=== PATIENT | male | born 1975 | race Caucasian/White ===

== ENCOUNTER 2024-06-08 13:09 | Emergency (ER) | payer OTHER, SELFPAY ==
[2024-06-08 13:18] VITALS: BP 120/70; PULSE 52; RESP 16; TEMP 36.6; O2SAT 99
[2024-06-08] MEDS: Diph,Pertuss(Acell),Tet Vac/Pf 0.5 ML SYR IM (13:37)
[2024-06-08] MEDS: Lidocaine 1% Pres-Free 5 ML VIAL (13:38)
--- NOTE | 2024-06-08 14:06 | ED.GENADUL_ITS ---
Discharge Plan Disposition Patient Disposition: Home Discharge Details Clinical Impression: Laceration of thumb Primary Care Provider: Kimberlee,Local ED Provider: Caitlyn James Home Meds and New Rx's Prescriptions: No Action No Known Home Meds Discharge Instructions Instructions: Laceration Repair With Stitches ED Additional Instructions: you have vertical mattress sutures #5 suture removal in 12-14 days after 48-72 hours, please allow to air dry at night may wear badage during day apply bacitracin and clean dressing after washing with soap and water daily return with spreading redness, fever, worsening pain HPI General Date/Time Provider Initiated Documentation: 06/08/24 13:14 . HPI Narrative: This 49-year-old male presents with report of laceration to left thumb. Patient was sharpening his son's skis when he accidentally slipped, cutting his thumb. States he needs a tetanus updated last was in 2009. He is otherwise reportedly healthy without history of coagulopathy. The event occurred just prior to arrival. Related Data Home Medications ?Medication ?Instructions ?Recorded ?Confirmed Unknown [No Known Home Meds] 06/08/24 06/08/24 Allergies Allergy/AdvReac Type Severity Reaction Status Date / Time Unable to Assess Allergy Unverified 06/08/24 13:15 General Stated Complaint: Laceration HEAVEN: 4 Exam Narrative Exam Narrative: Left thumb with a laceration noted along the radial aspect, into adipose tissue, range of motion intact, neurovascularly intact, no visualized foreign body flexion and extension completely intact on exam Course Vital Signs Vital signs: Vital Signs Temperature 36.6 C 06/08/24 13:18 Pulse 52 L 06/08/24 13:18 Respiratory Rate 16 06/08/24 13:18 Blood Pressure 120/70 06/08/24 13:18 Pulse Oximetry 99 06/08/24 13:18 Temperature 36.6 C 06/08/24 13:18 Temperature Source Oral 06/08/24 13:18 Pulse 52 L 06/08/24 13:18 Respiratory Rate 16 06/08/24 13:18 Respiratory Effort Normal, Non-Labored 06/08/24 13:17 Blood Pressure 120/70 06/08/24 13:18 Pulse Oximetry 99 06/08/24 13:18 Oxygen Delivery Method Room Air 06/08/24 13:18 Oxygen Flow Rate 0 06/08/24 13:18 Pain Level 6 06/08/24 13:18 Comment no meds 06/08/24 13:16 Procedures Laceration Laceration 1: Site: other (thumb ) Side (If applicable): left Size (cm): 2.5 Description: flap and irregular Amount of anesthesia used (mL): 4 Pre-repair: wound explored, irrigated extensively and wound margins revised Skin layer closed with: nylon Size (cm): 5-0 Number of sutures: 5 Technique: other (vertical mattress ) Medical Decision Making This 49-year-old male presents with laceration to left thumb just prior to arrival. Tetanus is updated, patient remains neurovascularly intact. I considered x-ray but I do not see obvious foreign body and laceration does not extend past the adipose tissue, full exam was able to be performed, flexion and extension are intact and I may see no evidence of tendon or ligamentous trauma. 5 vertical mattress sutures were placed patient tolerated without incident. He was placed in a dressing and encouraged to have them removed in 12 to 14 days. Motrin and Tylenol and refraining from submerging thumb in water was recommended. Return precautions reviewed and patient expressed understanding. Quality:SDOH Health Related Social Needs: No Data to Display PFSH All Active Problems (Updated 06/08/24 @ 14:09 by NOVA Ravi) Laceration of thumb (Acute) Social History Smoking/Tobacco Use Status: Never Smoking risk assessment performed?: Yes Alcohol Intake: current Alcohol Intake frequency: holidays/special occasions only Drug use: Never Substance use type: does not use Housing: house Do you feel safe at home: Yes Do you feel safe in your relationship?: Yes
== END 2024-06-08 14:29 | disposition home or self-care (01) ==
LOC: ER 14:42
PROVIDERS: Emergency Provider Physician Assistant
DX: S61.012A Laceration without foreign body of left thumb without damage to nail, initial encounter (principal); W26.0XXA Contact with knife, initial encounter; Z23 Encounter for immunization
CPT/HCPCS: 12001; 90715; 99284; 99283; J2003

== ENCOUNTER 2024-06-21 12:34 | Emergency (ER) | payer OTHER, SELFPAY ==
[2024-06-21 12:37] VITALS: BP 120/68; PULSE 72; RESP 18; TEMP 36.6; O2SAT 100
--- NOTE | 2024-06-21 12:57 | ED.GENADUL_ITS ---
Discharge Plan Disposition Patient Disposition: Home Condition: Stable Discharge Details Clinical Impression: Visit for suture removal Primary Care Provider: Kimberlee,Local ED Provider: Zechariah Nguyen Home Meds and New Rx's Prescriptions: No Action No Known Home Meds Discharge Instructions Additional Instructions: Keep wound protected to continue allow for healing. Return to the ER immediately for any worsening or new concerning symptoms. HPI General Mode of arrival: ambulatory . Date/Time Provider Initiated Documentation: 06/21/24 12:41 . Limitations to Documentation: no limitations . Information obtained by: patient . HPI Narrative: 49-year-old male here for suture removal from repaired wound right thumb. Sutures were placed on 06/08/2024. Wound has been healing well. He does have some discomfort when he impacts his thumb. No pain with movement. Related Data Home Medications ?Medication ?Instructions ?Recorded ?Confirmed Unknown [No Known Home Meds] 06/08/24 06/21/24 Allergies Allergy/AdvReac Type Severity Reaction Status Date / Time Unable to Assess Allergy Unverified 06/21/24 12:39 General Stated Complaint: SutureRem HEAVEN: 4 Review of Systems Integumentary/Breasts Skin/Breast: Reports as per HPI Exam Skin Other: Laceration right thumb healing well with #5 intact sutures Extrem Right upper extremity: hand Details: tendon exam normal Location: of the thumb, normal ROM of fingers (Thumb) and other (No bony tenderness) Course Vital Signs Vital signs: Vital Signs Temperature 36.6 C 06/21/24 12:37 Pulse 72 06/21/24 12:37 Respiratory Rate 18 06/21/24 12:37 Blood Pressure 120/68 06/21/24 12:37 Pulse Oximetry 100 06/21/24 12:37 Temperature 36.6 C 06/21/24 12:37 Pulse 72 06/21/24 12:37 Respiratory Rate 18 06/21/24 12:37 Blood Pressure 120/68 06/21/24 12:37 Pulse Oximetry 100 06/21/24 12:37 Pain Level 2 06/21/24 12:37 Medical Decision Making 49-year-old male here for suture removal. Sutures were placed 12 days ago right thumb. Wound healing well. 2 sutures removed easily. 3 sutures embedded. Let applied as anesthetic. Scalpel used and sutures removed without complication. Quality:SDOH Health Related Social Needs: No Data to Display PFSH All Active Problems (Updated 06/21/24 @ 13:06 by Zechariah Nguyen MD) Visit for suture removal (Acute) Laceration of thumb (Acute) Social History Smoking/Tobacco Use Status: Never Smoking risk assessment performed?: Yes Alcohol Intake: current Alcohol Intake frequency: holidays/special occasions only Drug use: Never Substance use type: does not use Housing: house Do you feel safe at home: Yes Do you feel safe in your relationship?: Yes
[2024-06-21] MEDS: Lidocaine/Epinephri/Tetracaine Topical Gel 3 ML (13:00)
== END 2024-06-21 13:32 | disposition home or self-care (01) ==
PROVIDERS: Emergency Provider Student in an Organized Health Care Education/Training Program
DX: S61.011D Laceration without foreign body of right thumb without damage to nail, subsequent encounter (principal); X58.XXXD Exposure to other specified factors, subsequent encounter

== ENCOUNTER 2024-07-08 15:05 | Emergency (ER) | payer OTHER, SELFPAY ==
[2024-07-08 15:08] VITALS: BP 121/72; PULSE 85; RESP 20; TEMP 37.9; O2SAT 96
[2024-07-08 15:13] VITALS: BP 121/72; PULSE 85; RESP 20; TEMP 37.9; O2SAT 98
--- NOTE | 2024-07-08 16:58 | ED.GENADUL_ITS ---
Discharge Plan Disposition Patient Disposition: Home Condition: Stable Discharge Details Clinical Impression: Flu Primary Care Provider: Kimberlee,Local ED Provider: Melisa Juares Home Meds and New Rx's Prescriptions: New ondansetron 4 mg tablet,disintegrating 4 mg PO Q6H PRN (Reason: nausea and vomiting) Qty: 30 0RF Discharge Instructions Instructions: Flu Additional Instructions: Your flu a test was positive today. Continue the Tamiflu that was prescribed to you. This can reduce the severity and duration of your symptoms, but you will still continue to have some symptoms. Like fever. You can take 600 mg of Motrin every 6 hours or 1 g of Tylenol every 4 hours. Do not exceed 2 g of Tylenol in a 24-hour period. Make sure to drink lots of water and get lots of rest A prescription for Zofran was sent to the pharmacy just in case he may need this as there are some GI upset associated with influenza as well as side effect of the Tamiflu. HPI General Date/Time Provider Initiated Documentation: 07/08/24 15:08 . Limitations to Documentation: no limitations . Information obtained by: patient . HPI Narrative: 49-year-old gentleman without significant past medical history presents for evaluation of fever and bodyaches. He reports onset of symptoms yesterday morning. Symptoms have progressively worsened. He has had fever, body aches, mild cough, nasal congestion. He called the telehealth doctor today who prescribed Tamiflu. He took the first dose at home earlier. He reports that because he was having persistent fever he took Tylenol and came to the emergency department for further evaluation. Related Data Home Medications ?Medication ?Instructions ?Recorded ?Confirmed ondansetron 4 mg disintegrating 4 mg PO Q6H PRN nausea and 07/08/24 tablet vomiting #30 tabs Previous Rx's ?Medication ?Instructions ?Recorded ondansetron 4 mg disintegrating 4 mg PO Q6H PRN nausea and 07/08/24 tablet vomiting #30 tabs Allergies Allergy/AdvReac Type Severity Reaction Status Date / Time No Known Drug Allergies AdvReac no Verified 07/08/24 15:15 allergies General Stated Complaint: Headache HEAVEN: 4 Exam Narrative Exam Narrative: Review of Systems: All systems reviewed & are unremarkable except as noted in HPI and below Well-developed, no acute distress + Febrile NCAT PERRL, normal conjunctiva Bilateral TMs without effusion erythema or bulging Posterior oropharynx without tonsillar enlargement or exudate Mild shotty cervical adenopathy RRR Unlabored respiratory effort clear bilaterally soft nontender Nondistended abdomen Course Vital Signs Vital signs: Vital Signs Temperature 37.9 C H 07/08/24 15:08 Pulse 85 07/08/24 15:08 Respiratory Rate 20 07/08/24 15:08 Blood Pressure 121/72 07/08/24 15:08 Pulse Oximetry 96 07/08/24 15:08 Temperature 37.9 C H 07/08/24 15:13 Temperature Source Oral 07/08/24 15:13 Pulse 85 07/08/24 15:13 Respiratory Rate 20 07/08/24 15:13 Blood Pressure 121/72 07/08/24 15:13 Blood Pressure Position Sitting 07/08/24 15:13 Pulse Oximetry 98 07/08/24 15:13 Oxygen Delivery Method Room Air 07/08/24 15:13 Oxygen Flow Rate 0 07/08/24 15:08 Pain Level 10 07/08/24 15:13 Medical Decision Making Emergent evaluation of acute febrile illness. Initial differential includes viral syndrome, less likely serious bacterial illness, unlikely pneumonia given normal respiratory exam. No signs of meningitis. Viral testing was obtained and test is positive for flu A. Recommend continued antipyretics. He has already taken the first dose of the Tamiflu prescribed by the telehealth provider. I have also sent Zofran to the pharmacy as needed. Recommend continued supportive care. Return precautions advised. Follow with PCP as needed. Quality:SDOH Health Related Social Needs: No Data to Display PFSH All Active Problems Flu (Acute) Visit for suture removal (Acute) Laceration of thumb (Acute) Social History Smoking/Tobacco Use Status: Never Smoking risk assessment performed?: Yes Alcohol Intake: current Alcohol Intake frequency: holidays/special occasions only Alcohol type: wine Drug use: Never Substance use type: does not use Housing: house Do you feel safe at home: Yes Do you feel safe in your relationship?: Yes PAWSS Have you Been Recently Intoxicated or Drunk Within the Last 30 days?: No Have you Ever Experienced Previous Episodes of Alcohol Withdrawal?: No Have you ever Experienced Withdrawal Seizures?: No Have you ever Experienced Delirium Tremens(DT)s?: No Have you ever undergone Alcohol Rehabilitation Treatment (i.e, inpt ot outpatient treatment programs)?: No Have you ever Experienced Blackouts?: No Have you ever Combined Alcohol with other Downers within the last 90 days?: No Have you ever Combined Alcohol with any other Substance of Abuse during the last 90 days?: No Positive Blood Alcohol level on Presentation? [PCS.BAL]: No Evidence of Increased Autonomic Activity (i.e. HR>120, tremor, sweating, agitation, nausea)?: No Result: 0
== END 2024-07-08 16:29 | disposition home or self-care (01) ==
PROVIDERS: Emergency Provider Emergency Medicine
DX: J11.1 Influenza due to unidentified influenza virus with other respiratory manifestations (principal)
CPT/HCPCS: 99283